=== PATIENT | female | born 1950 | race Caucasian/White ===

== ENCOUNTER 2022-06-14 20:29 | Inpatient (IN) | payer BC, MEDICAID, MEDICARE, OTHER ==
[2022-06-15] MEDS: Memantine 10 MG Tab PO SCH ×2 (11:46→19:34)
[2022-06-15] MEDS: Lisinopril 5 MG Tab PO SCH (11:46)
[2022-06-15] MEDS ORDERED: Tuberculin, PPD 5 Units/0.1 ML 1 ML MDV IDERM ONE (13:00)
[2022-06-15] MEDS: Simvastatin 20 MG Tab PO SCH (19:35)
[2022-06-15] MEDS ORDERED: Pravastatin 20 MG Tab PO SCH (20:00)
[2022-06-16] MEDS: Lisinopril 5 MG Tab PO SCH (07:56)
[2022-06-16] MEDS: Memantine 10 MG Tab PO SCH ×2 (07:59→20:09)
[2022-06-16] MEDS: Simvastatin 20 MG Tab PO SCH (20:09)
[2022-06-17] MEDS: Lisinopril 5 MG Tab PO SCH (07:57)
[2022-06-17] MEDS: Memantine 10 MG Tab PO SCH ×2 (07:59→19:01)
[2022-06-17] MEDS: SIMVASTATIN 20MG TABLETS PO SCH (19:01)
[2022-06-18] MEDS: LISINOPRIL 5MG TABLET PO SCH (08:14)
[2022-06-18] MEDS: MEMANTINE 28 MG PO SCH (08:14)
[2022-06-18] MEDS: SIMVASTATIN 20MG TABLETS PO SCH (18:59)
[2022-06-19] MEDS: LISINOPRIL 5MG TABLET PO SCH (07:44)
[2022-06-19] MEDS: MEMANTINE 28 MG PO SCH (07:44)
[2022-06-19] MEDS: SIMVASTATIN 20MG TABLETS PO SCH (19:10)
[2022-06-20] MEDS: MEMANTINE 28 MG PO SCH (08:16)
[2022-06-20] MEDS: LISINOPRIL 5MG TABLET PO SCH (08:16)
[2022-06-20] MEDS: SIMVASTATIN 20MG TABLETS PO SCH (20:43)
[2022-06-21] MEDS: LISINOPRIL 5MG TABLET PO SCH (07:28)
[2022-06-21] MEDS: MEMANTINE 28 MG PO SCH (07:28)
[2022-06-21] MEDS: SIMVASTATIN 20MG TABLETS PO SCH (19:13)
[2022-06-21] MEDS: Acetaminophen 325 MG Tab PO PRN (20:06)
[2022-06-22] MEDS: LISINOPRIL 5MG TABLET PO SCH (07:32)
[2022-06-22] MEDS: MEMANTINE 28 MG PO SCH (07:32)
[2022-06-22] MEDS: SIMVASTATIN 20MG TABLETS PO SCH (19:10)
[2022-06-23] MEDS: MEMANTINE 28 MG PO SCH (08:38)
[2022-06-23] MEDS: LISINOPRIL 5MG TABLET PO SCH (08:38)
[2022-06-23] MEDS: SIMVASTATIN 20MG TABLETS PO SCH (19:26)
[2022-06-24] MEDS: MEMANTINE 28 MG PO SCH (08:06)
[2022-06-24] MEDS: LISINOPRIL 5MG TABLET PO SCH (08:06)
[2022-06-24] MEDS: SIMVASTATIN 20MG TABLETS PO SCH (19:39)
[2022-06-25] MEDS: MEMANTINE 28 MG PO SCH (08:03)
[2022-06-25] MEDS: LISINOPRIL 5MG TABLET PO SCH (08:03)
[2022-06-25] MEDS: Acetaminophen 325 MG Tab PO PRN (12:44)
[2022-06-25] MEDS: SIMVASTATIN 20MG TABLETS PO SCH (19:37)
[2022-06-26] MEDS: LISINOPRIL 5MG TABLET PO SCH (08:07)
[2022-06-26] MEDS: MEMANTINE 28 MG PO SCH (08:08)
[2022-06-26] MEDS: Acetaminophen 325 MG Tab PO PRN (15:00)
[2022-06-26] MEDS: SIMVASTATIN 20MG TABLETS PO SCH (19:31)
[2022-06-27] MEDS: LISINOPRIL 5MG TABLET PO SCH (07:25)
[2022-06-27] MEDS: MEMANTINE 28 MG PO SCH (07:25)
[2022-06-27] MEDS ORDERED: Citalopram 10 MG Tab PO SCH (09:45)
[2022-06-27] MEDS: SIMVASTATIN 20MG TABLETS PO SCH (19:49)
[2022-06-28] MEDS: LISINOPRIL 5MG TABLET PO SCH (08:19)
[2022-06-28] MEDS: MEMANTINE 28 MG PO SCH (08:19)
[2022-06-28] MEDS: Acetaminophen 325 MG Tab PO PRN (08:19)
[2022-06-28] MEDS: SIMVASTATIN 20MG TABLETS PO SCH (19:08)
[2022-06-29] MEDS: MEMANTINE 28 MG PO SCH (07:45)
[2022-06-29] MEDS: LISINOPRIL 5MG TABLET PO SCH (07:45)
[2022-06-29] MEDS: Acetaminophen 325 MG Tab PO PRN (07:49)
[2022-06-29] MEDS: SIMVASTATIN 20MG TABLETS PO SCH (19:55)
[2022-06-30] MEDS: LISINOPRIL 5MG TABLET PO SCH (07:48)
[2022-06-30] MEDS: MEMANTINE 28 MG PO SCH (07:48)
[2022-06-30] MEDS: Acetaminophen 325 MG Tab PO PRN ×2 (10:00→19:45)
[2022-06-30] MEDS: SIMVASTATIN 20MG TABLETS PO SCH (19:44)
[2022-07-01] MEDS: MEMANTINE 28 MG PO SCH (07:56)
[2022-07-01] MEDS: LISINOPRIL 5MG TABLET PO SCH (07:57)
[2022-07-01] MEDS: SIMVASTATIN 20MG TABLETS PO SCH (19:18)
[2022-07-01] MEDS: Acetaminophen 325 MG Tab PO PRN (23:56)
[2022-07-02] MEDS: Acetaminophen 325 MG Tab PO PRN (08:15)
[2022-07-02] MEDS: MEMANTINE 28 MG PO SCH (08:16)
[2022-07-02] MEDS: LISINOPRIL 5MG TABLET PO SCH (08:16)
[2022-07-02] MEDS: SIMVASTATIN 20MG TABLETS PO SCH (20:07)
[2022-07-03] MEDS: LISINOPRIL 5MG TABLET PO SCH (07:27)
[2022-07-03] MEDS: MEMANTINE 28 MG PO SCH (07:28)
[2022-07-03] MEDS: Acetaminophen 325 MG Tab PO PRN (18:03)
[2022-07-03] MEDS: SIMVASTATIN 20MG TABLETS PO SCH (19:10)
[2022-07-04] MEDS: MEMANTINE 28 MG PO SCH (08:21)
[2022-07-04] MEDS: LISINOPRIL 5MG TABLET PO SCH (08:21)
[2022-07-04] MEDS: Acetaminophen 325 MG Tab PO PRN ×2 (08:27→19:45)
[2022-07-04] MEDS: SIMVASTATIN 20MG TABLETS PO SCH (19:45)
[2022-07-05] MEDS: LISINOPRIL 5MG TABLET PO SCH (07:46)
[2022-07-05] MEDS: MEMANTINE 28 MG PO SCH (07:46)
[2022-07-05] MEDS: Acetaminophen 325 MG Tab PO PRN ×2 (07:47→19:42)
[2022-07-05] MEDS: SIMVASTATIN 20MG TABLETS PO SCH (19:43)
[2022-07-06] MEDS: MEMANTINE 28 MG PO SCH (07:32)
[2022-07-06] MEDS: LISINOPRIL 5MG TABLET PO SCH (07:32)
[2022-07-06] MEDS: Acetaminophen 325 MG Tab PO PRN ×2 (07:34→20:40)
[2022-07-06] MEDS: SIMVASTATIN 20MG TABLETS PO SCH (19:09)
[2022-07-07] MEDS: LISINOPRIL 5MG TABLET PO SCH (10:00)
[2022-07-07] MEDS: MEMANTINE 28 MG PO SCH (10:00)
[2022-07-07] MEDS: Acetaminophen 325 MG Tab PO PRN ×2 (10:02→19:32)
[2022-07-07] MEDS: SIMVASTATIN 20MG TABLETS PO SCH (19:31)
[2022-07-08] MEDS: MEMANTINE 28 MG PO SCH (07:37)
[2022-07-08] MEDS: LISINOPRIL 5MG TABLET PO SCH (07:38)
[2022-07-08] MEDS: Acetaminophen 325 MG Tab PO PRN (17:51)
[2022-07-08] MEDS: SIMVASTATIN 20MG TABLETS PO SCH (19:39)
[2022-07-09] MEDS: LISINOPRIL 5MG TABLET PO SCH (07:32)
[2022-07-09] MEDS: MEMANTINE 28 MG PO SCH (07:33)
[2022-07-09] MEDS: Acetaminophen 325 MG Tab PO PRN (19:24)
[2022-07-09] MEDS: SIMVASTATIN 20MG TABLETS PO SCH (19:25)
[2022-07-10] MEDS: LISINOPRIL 5MG TABLET PO SCH (07:42)
[2022-07-10] MEDS: MEMANTINE 28 MG PO SCH (07:42)
[2022-07-10] MEDS: Acetaminophen 325 MG Tab PO PRN ×2 (13:46→19:41)
[2022-07-10] MEDS: SIMVASTATIN 20MG TABLETS PO SCH (19:40)
[2022-07-11] MEDS: LISINOPRIL 5MG TABLET PO SCH (07:18)
[2022-07-11] MEDS: MEMANTINE 28 MG PO SCH (07:18)
[2022-07-11] MEDS: Acetaminophen 325 MG Tab PO PRN (07:28)
[2022-07-11 07:42] VITALS: BP 150/80; PULSE 80
== END 2022-07-11 08:05 | DRG 951 ==
LOC: UNDOADMIN 20:29 → LB.MS 20:29
PROVIDERS: ADMIT Surgery; ATTEND Surgery
DX: Z75.5 Holiday relief care (principal); Z68.42 Body mass index [BMI] 45.0-49.9, adult; F32.A Depression, unspecified; F03.90 Unspecified dementia, unspecified severity, without behavioral disturbance, psychotic disturbance, mood disturbance, and anxiety; Z66 Do not resuscitate; I10 Essential (primary) hypertension; E66.9 Obesity, unspecified; E78.00 Pure hypercholesterolemia, unspecified; Z96.643 Presence of artificial hip joint, bilateral; Z98.890 Other specified postprocedural states
CPT/HCPCS: 86580; A9270-GY; U0002

== ENCOUNTER 2024-12-12 19:19 | Emergency (ER) | payer MEDICARE ==
[2024-12-12] MEDS ORDERED: Sodium Chloride 0.9% 10 ML Syringe FLUSH PRN (20:00)
[2024-12-12 20:20] LABS: BASOPHILS ABSOLUTE AUTO 0.02 K/uL (0.02-0.10); BASOPHILS PERCENT AUTO 0.1 % (0.0-0.5); EOSINOPHILS ABSOLUTE AUTO 0.07 K/uL (0.04-0.40); EOSINOPHILS PERCENT AUTO 0.5 % (1.0-5.0); LYMPHOCYTES ABSOLUTE AUTO 0.80 K/uL (1.50-4.00); LYMPHOCYTES PERCENT AUTO 5.2 % (20.0-40.0); MEAN PLATELET VOLUME 9.4 fL (6.0-10.0); MONOCYTES ABSOLUTE AUTO 0.98 K/uL (0.20-0.80); MONOCYTES PERCENT AUTO 6.3 % (3.0-10.0); NEUTROPHILS ABSOLUTE AUTO 13.63 K/uL (2.00-7.50); NEUTROPHILS PERCENT AUTO 87.9 % (45.0-70.0); PLATELET COUNT,PLT 235 K/uL (150-500); RED BLOOD CELL COUNT 4.20 M/uL (3.80-5.80); RED CELL DISTRIBUTION WIDTH 13.5 % (11.0-16.0); WHITE BLOOD CELL COUNT,WBC 15.5 K/uL (4.0-11.0)
[2024-12-12 20:34] LABS: APPEARANCE,URINE CLOUDY (CLEAR); GLUCOSE,URINE NEGATIVE (NEGATIVE); OCCULT BLOOD,URINE NEGATIVE (NEGATIVE)
[2024-12-12 20:37] LABS: A/G RATIO 0.9 (0.8-2.0); ALANINE AMINOTRANSFERASE,ALT 17.0 U/L (12-78); ASPARTATE AMNIOTRANSFERASE,AST 22.0 U/L (15-37); BILIRUBIN TOTAL 0.5 mg/dL (0.0-1.0); BLOOD UREA NITROGEN,BUN 17.0 mg/dL (8-26); CARBON DIOXIDE,CO2 25.8 mmol/L (21.0-32.0); CHLORIDE,CL 103.0 mmol/L (98-107); CREATININE 0.84 mg/dL (0.55-1.02); EST CRCL DRUG DOSING (CG) 47.13 mL/min; ESTIMATED GFR 72.0 mL/min (>60); GLUCOSE RANDOM 113.0 mg/dL (74-100); POTASSIUM,K 4.8 mmol/L (3.5-5.1); PROTEIN TOTAL,TP 6.9 g/dL (6.4-8.2); SODIUM,NA 138.0 mmol/L (136-145); TROPONIN I HIGH SENSITIVITY 6.1 pg/ml (<=60.4)
[2024-12-12] MEDS: Iopamidol 612 MG/ML 100 ML Bottle IV SCH (21:42)
[2024-12-12] MEDS: Sodium Chloride 0.9% 50 ML SDV FLUSH ONE (21:42)
[2024-12-12] MEDS: Ciprofloxacin in D5W 400 MG in Premix Bag 1 BAG IV ONE (21:55)
[2024-12-12 22:25] VITALS: PULSE 96
[2024-12-12 23:36] VITALS: BP 113/70
== END 2024-12-12 23:20 | disposition home or self-care (01) ==
LOC: LB.ED 19:19
DX: N39.0 Urinary tract infection, site not specified (principal); R10.84 Generalized abdominal pain; Z88.5 Allergy status to narcotic agent; Z79.899 Other long term (current) drug therapy
CPT/HCPCS: 36415; 74177; 80053; 81001; 83690; 84484; 85025; 93005; 93010; 96365; 99283; 99284-25; C1758; J0744; Q9967

== ENCOUNTER 2025-01-04 08:42 | Emergency (ER) | payer MEDICARE ==
[2025-01-04] MEDS: 50% Dextrose in Water 50 ML Syringe IVPUSH ONE ×3 (08:55→15:00)
[2025-01-04] MEDS ORDERED: Sodium Chloride 0.9% 10 ML Syringe FLUSH PRN ×2 (09:09→19:23)
[2025-01-04 09:17] LABS: MEAN PLATELET VOLUME 9.5 fL (6.0-10.0); PLATELET COUNT,PLT 320.0 K/uL (150-500); RED BLOOD CELL COUNT 4.49 M/uL (3.80-5.80); RED CELL DISTRIBUTION WIDTH 13.2 % (11.0-16.0); WHITE BLOOD CELL COUNT,WBC 18.8 K/uL (4.0-11.0)
[2025-01-04 09:33] LABS: LACTIC ACID 1.5 mmol/L (0.4-2.0)
[2025-01-04 09:39] LABS: A/G RATIO 0.8 (0.8-2.0); ALANINE AMINOTRANSFERASE,ALT 17.0 U/L (12-78); ASPARTATE AMNIOTRANSFERASE,AST 15.0 U/L (15-37); BILIRUBIN TOTAL 0.3 mg/dL (0.0-1.0); BLOOD UREA NITROGEN,BUN 29.0 mg/dL (8-26); CARBON DIOXIDE,CO2 30.7 mmol/L (21.0-32.0); CHLORIDE,CL 105.0 mmol/L (98-107); CREATININE 1.07 mg/dL (0.55-1.02); EST CRCL DRUG DOSING (CG) 38.62 mL/min; ESTIMATED GFR 54.0 mL/min (>60); POTASSIUM,K 3.2 mmol/L (3.5-5.1); PROTEIN TOTAL,TP 6.8 g/dL (6.4-8.2); SODIUM,NA 143.0 mmol/L (136-145); TROPONIN I HIGH SENSITIVITY 29.5 pg/ml (<=60.4)
[2025-01-04 09:41] LABS: GLUCOSE RANDOM 25.0 mg/dL (74-100)
[2025-01-04 09:51] LABS: GLUCOSE,URINE NEGATIVE (NEGATIVE); OCCULT BLOOD,URINE NEGATIVE (NEGATIVE)
[2025-01-04 10:00] LABS: APPEARANCE,URINE SLIGHTLY CLOUDY (CLEAR)
[2025-01-04] MEDS: 50% Dextrose in Water 50 ML Syringe IVPUSH SCH (11:32)
[2025-01-04 16:37] LABS: BICARBONATE,ARTERIAL 20.8 mmol/L (22-26); O2 SATURATION ARTERIAL 95.7 % (95-98); PCO2 ARTERIAL 33.3 mmHg (35-45); PO2 ARTERIAL 78.4 mmHg (80-105)
[2025-01-04 16:38] LABS: BASE EXCESS ARTERIAL -4.0 (-2-2)
[2025-01-04 19:07] VITALS: BP 106/61; PULSE 71
== END 2025-01-04 17:55 ==
LOC: LB.ED 08:42
DX: T68.XXXA Hypothermia, initial encounter (principal); J69.0 Pneumonitis due to inhalation of food and vomit; G40.909 Epilepsy, unspecified, not intractable, without status epilepticus; E16.2 Hypoglycemia, unspecified; R41.0 Disorientation, unspecified; E66.9 Obesity, unspecified; Z88.5 Allergy status to narcotic agent; Z79.899 Other long term (current) drug therapy
CPT/HCPCS: 36415; 36600; 51702; 70450; 70496; 70498; 71045; 71250; 74176; 80053; 81001; 82803; 82947; 83605; 83690; 83735; 84443; 84484; 85027; 93005; 96361; 96365; 96367; 96374; 96375; 96376; 99285; A0425; A0428; C1758; J1953; J2470; J2543; J3480; J7030; J7060; J7070